=== PATIENT | male | born 1935 | race Caucasian/White ===

== ENCOUNTER 2022-12-07 12:38 | Emergency (ER) | payer OTHER ==
[2022-12-07 13:07] VITALS: BMI 22.0
[2022-12-07 13:21] LABS: HEMATOCRIT 22.3 % (35.4-49); HEMOGLOBIN 7.2 GM/dL (11.7-16.9); MCHC 32.2 g/dl (32.0-35.9); MEAN CELL VOLUME 83.8 fl (80-96); PLATELET COUNT 68 10^3/uL (134-434); RBC 2.66 M/mm3 (4.00-5.60)
[2022-12-07 13:26] LABS: WHITE BLOOD COUNT 0.7 K/mm3 (4.0-10.0)
[2022-12-07 13:38] LABS: ACTIVATED PTT 34.3 SECONDS (25.2-36.5); INR 1.31 (0.83-1.09); PROTHROMBIN TIME (PATIENT) 15.1 SEC (9.7-13.0)
[2022-12-07 13:49] LABS: POTASSIUM 4.6 mmol/L (3.5-5.1)
[2022-12-07 13:50] LABS: ALBUMIN 2.2 g/dl (3.4-5.0); BLOOD UREA NITROGEN 23.9 mg/dL (7-18); CALCIUM 8.9 mg/dL (8.5-10.1)
[2022-12-07 13:53] LABS: CREATININE 1.3 mg/dL (0.55-1.3)
[2022-12-07 13:55] LABS: BILIRUBIN,TOTAL 0.6 mg/dL (0.2-1); TOT PROT 6.5 g/dl (6.4-8.2)
[2022-12-07 14:53] LABS: ANISOCYTOSIS 3+; MACROCYTOSIS 0
[2022-12-08] MEDS ORDERED: amLODIPine BESYLATE 2.5 MG TABLET (FP) PO ONE (01:55)
[2022-12-08] MEDS ORDERED: LISINOPRIL 20 MG TABLET PO ONE (01:56)
[2022-12-08] MEDS ORDERED: LISINOPRIL 20 MG TABLET ONE (01:57)
[2022-12-08] MEDS ORDERED: amLODIPine BESYLATE 2.5 MG TABLET (FP) ONE (01:57)
[2022-12-08] MEDS ORDERED: LABETALOL HCL 5 MG/1 ML (100MG/20 ML VIAL) IVPUSH ONE ×2 (02:27→03:23)
[2022-12-08] MEDS ORDERED: LABETALOL HCL 20 MG/4 ML VIAL ONE ×2 (02:35→03:25)
[2022-12-08 08:25] VITALS: BP 157/71; PULSE 96; RESP 20; TEMP 98.1
== END 2022-12-08 09:07 ==
LOC: JER 12:38
PROC: 3E033NZ Introduction of Analgesics, Hypnotics, Sedatives into Peripheral Vein, Percutaneous Approach (ICD-10-PCS; principal; 2022-12-08)
PROC: 3E033NZ Introduction of Analgesics, Hypnotics, Sedatives into Peripheral Vein, Percutaneous Approach (ICD-10-PCS; 2022-12-08)
DX: D46.9 Myelodysplastic syndrome, unspecified (principal)
CPT/HCPCS: 36415; 36430; 71045-TC-FY; 80053; 83735; 84484; 85025; 85610; 85730; 86850; 86900; 86901; 86922; 93005; 93010; 99285-25; P9058